=== PATIENT | female | born 1945 | race Caucasian/White ===

== ENCOUNTER → 2017-04-30 18:03 | Outpatient (CLI) | payer MEDICARE ==
[2016-05-28 13:53] VITALS: BMI 26.3
[~2017-04-30 18:03] MED LIST: ATIVAN0.5 MG PO; CYMBALTA60 MG PO; EFFEXOR37.5 MG PO; ESTRACE1 MG PO; GABAPENTIN100 MG PO; LEVAQUIN750 MG PO; LISINOPRIL10 MG PO; NEXIUM20 MG PO; PRAVACHOL20 MG PO; SYNTHROID50 MCG PO; TUMS X-STR300 MG PO; ULTRAM50 MG PO; XANAX0.25 MG PO; XANAX0.5 MG PO; ZESTRIL20 MG PO
== END | disposition home or self-care (01) ==
LOC: D.LABREF 18:03
PROVIDERS: Internal Medicine Pulmonary Disease
DX: J84.10 Pulmonary fibrosis, unspecified (principal)

== ENCOUNTER → 2017-05-08 09:39 | Outpatient (CLI) | payer MEDICARE ==
[2016-05-28 13:53] VITALS: BMI 26.3
[~2017-05-08 09:39] MED LIST changes: +ATIVAN1 MG PO
== END | disposition home or self-care (01) ==
LOC: D.RT 09:39
DX: J84.10 Pulmonary fibrosis, unspecified (principal)

== ENCOUNTER → 2017-05-13 10:08 | Outpatient (CLI) | payer MEDICARE ==
[2016-05-28 13:53] VITALS: BMI 26.3
== END | disposition home or self-care (01) ==
LOC: D.RAD 10:08
DX: K21.9 Gastro-esophageal reflux disease without esophagitis (principal)

== ENCOUNTER 2017-05-21 08:21 | Day surgery (SDC) | payer MEDICARE ==
[~2017-05-21 08:21] MED LIST changes: -ATIVAN1 MG PO
[2017-05-21] MEDS ORDERED: ATIVAN1 MG PO (08:57)
[2017-05-21 09:03] VITALS: BP 112/54; BMI 28.8
[2017-05-21 10:12] LABS: BASOPHILS 0.2 % (0-2); EOSINOPHILS 1.7 % (0-7); HEMATOCRIT 33.1 % (36.0-48.0); HEMOGLOBIN 10.4 g/dL (12-16); IMMATURE GRANULOCYTES 0.4 % (0-5); LYMPHOCYTES 15.1 % (15-50); MCH 26.6 pg (26.0-34.0); MCHC 31.4 g/dL (31.0-37.0); MCV 84.7 fL (80.0-100.0); MEAN PLATELET VOLUME 10.1 fL (7.4-10.4); MONOCYTES 6.9 % (2-11); NEUTROPHILS 75.7 % (40-80); RBC 3.91 10x6/uL (4.00-5.40); RDW 14.6 % (11.5-14.5)
[2017-05-21 10:26] LABS: CALC OSMOLALITY 285 mosm/kg (275-300); CALCIUM 8.8 mg/dL (8.5-10.1); CARBON DIOXIDE 30.9 mmol/L (21.0-32.0); CHLORIDE - SERUM 107 mmol/L (98-107); CREATININE - SERUM 0.7 mg/dL (0.6-1.3); GLUCOSE 87 mg/dL (74-106); POTASSIUM - SERUM 4.5 mmol/L (3.5-5.1); SODIUM 144 mmol/L (136-145); UREA NITROGEN 13 mg/dL (7-18); eGFR NON AFRICAN AMERICAN 87 mL/min (90-120)
[2017-05-21 11:37] LABS: PLATELET COUNT 336 10x3/uL (130-400)
--- NOTE | 2017-05-21 16:24 | NUR ---
1540 DISCHARGE INSTRUCTIONS COMPLETE. PT HAS NO QUESTIONS OR CONCERNS AT THIS TIME. PT ESCORTED OUT BY VOLUNTEER.
--- NOTE | 2017-05-22 13:11 | OP ---
PATIENT NAME: ROBINSON POMPA MEDICAL RECORD: [id number] :45 LOCATION:D.OPS ADMISSION DATE: SURGEON: MARVIN COTE MD DATE OF OPERATION: 05/21/2017 PREOPERATIVE DIAGNOSES: 1. Gastroesophageal reflux disease. 2. Hiatal hernia. 3. Hypertension. 4. Hyperlipidemia. 5. Hypercholesterolemia. 6. Anxiety disorder. POSTOPERATIVE DIAGNOSES: 1. Gastroesophageal reflux disease. 2. Hiatal hernia. 3. Hypertension. 4. Hyperlipidemia. 5. Hypercholesterolemia. 6. Anxiety disorder. PROCEDURE: EGD with biopsy. SURGEON: Marvin Cote MD REPORT OF PROCEDURE: An Olympus endoscope was advanced through the mouth and esophagus, the GE junction was noted to be about 30 cm. A biopsy was taken at the GE junction. There was noted to be some inflammatory changes of the GE junction along with some ulcerations. The patient also had some mild dilation of the distal esophagus. It appeared the patient did have a hiatal hernia. As we progressed down into the stomach, the initial aspect of the stomach was a tight little column of tissue, which emptied into an opening. This opening was angulated and initially quite tight. We were eventually able to pass through this opening into the remainder of the stomach. As we did a retroflex view, we could see the remaining fundus of the stomach projecting upwards and we could see the antrum of the stomach leading up to the pylorus. This was all consistent with a vertical banding gastroplasty. The patient had some inflammatory gastritis in the distal stomach. A biopsy was taken of this tissue. We were able to pass through the pylorus and into the duodenum. There are no signs of any inflammatory changes, masses, or ulcerations to the duodenum. Another view of the stomach showed no sign of any masses, lesions or ulcerations. I was not able to get up to the most proximal aspect of the fundus of the stomach secondary to the fact the scope would not turn that direction. We had the scope maxed out in position and could just see into this opening. As we pulled back, we could see that the GE junction was resting at about 30 cm at the teeth and the distal opening of the vertical banding gastroplasty was at about 50 cm. At this point, the scope was pulled back and we inspected the patient's esophagus. Besides the dilatation and distal ulcerations, there was no sign of any masses or lesions. At this point, the scope was completely removed. COMPLICATIONS: None. CONDITION: Stable. OPERATIVE REPORT [id number] ROBINSON POMPA ANESTHESIA: TIVA. BLOOD LOSS: Minimal. TRANSINT:[id number] Voice Confirmation ID: [id number] DOCUMENT ID: [id number] MARVIN COTE MD at 1311 CC: JAYASHREE OSORIO MD [id number] DICTATION DATE: 05/21/17 1426 L[employer]OGRAPH PR[employer] OPERATOR: 05/21/17 1557 [facility] 05/21/17 [id number] [place] [address]
== END 2017-05-21 15:40 | disposition home or self-care (01) ==
LOC: D.OPS 08:21
PROVIDERS: Surgery
DX: K21.9 Gastro-esophageal reflux disease without esophagitis (principal); K44.9 Diaphragmatic hernia without obstruction or gangrene; I10 Essential (primary) hypertension; E78.00 Pure hypercholesterolemia, unspecified; F03.90 Unspecified dementia, unspecified severity, without behavioral disturbance, psychotic disturbance, mood disturbance, and anxiety; F41.9 Anxiety disorder, unspecified; Z01.812 Encounter for preprocedural laboratory examination

== ENCOUNTER → 2017-09-22 09:43 | Outpatient (CLI) | payer MEDICARE ==
[~2017-09-22 09:43] MED LIST changes: +ATIVAN1 MG PO
== END | disposition home or self-care (01) ==
LOC: D.CT 09-17 10:30
DX: J84.10 Pulmonary fibrosis, unspecified (principal)

== ENCOUNTER 2017-10-06 05:25 | Day surgery (SDC) | payer MEDICARE ==
[2017-10-05 10:18] LABS: BASOPHILS 0.3 % (0-2); EOSINOPHILS 1.8 % (0-7); HEMATOCRIT 32.7 % (36.0-48.0); HEMOGLOBIN 10.1 g/dL (12-16); IMMATURE GRANULOCYTES 0.1 % (0-5); LYMPHOCYTES 23.8 % (15-50); MCH 23.6 pg (26.0-34.0); MCHC 30.9 g/dL (31.0-37.0); MCV 76.4 fL (80.0-100.0); MEAN PLATELET VOLUME 9.5 fL (7.4-10.4); MONOCYTES 9.1 % (2-11); NEUTROPHILS 64.9 % (40-80); PLATELET COUNT 395 10x3/uL (130-400); RBC 4.28 10x6/uL (4.00-5.40); RDW 17.6 % (11.5-14.5); WBC 8.9 10x3/uL (4.8-10.8)
[2017-10-05 10:33] LABS: ANION GAP 9.4 mmol/L (8-16); CALCIUM 8.8 mg/dL (8.5-10.1); CREATININE - SERUM 0.8 mg/dL (0.6-1.3); POTASSIUM - SERUM 4.4 mmol/L (3.5-5.1)
[2017-10-06] VITALS (7 sets, daily range): BP systolic 99–127; BP diastolic 49–79; BMI 28.9
--- NOTE | ~2017-10-06 | OP ---
PATIENT NAME: ROBINSON POMPA MEDICAL RECORD: [id number] :45 LOCATION:D.OPS ADMISSION DATE: SURGEON: HUMBERTO COTE MD DATE OF OPERATION: 10/06/2017 PREOPERATIVE DIAGNOSES: 1. Gastroesophageal reflux disease. 2. Hiatal hernia. 3. Fibrosis of the lungs. 4. Hypertension. 5. Hyperlipidemia. POSTOPERATIVE DIAGNOSES: 1. Gastroesophageal reflux disease. 2. Hiatal hernia. 3. Fibrosis of the lungs. 4. Hypertension. 5. Hyperlipidemia. PROCEDURES: 1. Laparoscopic lysis of adhesions. 2. Laparoscopic hiatal hernia repair with Eunice fundoplication. SURGEON: Humberto Cote MD REPORT OF PROCEDURE: The patient's abdomen was prepped and draped in sterile fashion. A Veress needle was inserted in the left upper quadrant and the abdomen was insufflated. A 5-mm Visiport trocar was inserted in the left lateral abdomen. I could see the Veress needle at this point and saw there was no sign of any injury to bowel or surrounding structures. We then placed an 11-mm trocar in the left subcostal region. Using this, I was able to take down a large amount of adhesions remaining in the midline from the previous midline laparotomy. These were fatty omental adhesions to the anterior abdominal wall and included some of the adhesions to the patient's liver. We took down all the adhesions and still had the abdomen from the umbilicus up, cleared of any adhesions. This took approximately 30 minutes time. Once we had the adhesions freed up, then we were able to place a 5-mm trocar in the epigastrium, a 5-mm trocar in the left lateral abdomen, and an 11-mm trocar in the midline just above the umbilicus. There were still some adhesions of the stomach to the lateral aspect of the left lobe of the liver and these were taken down using electrocautery and Harmonic scalpel. We eventually were able to penetrate through the lesser omentum and followed this dissection up to the right side of the right manuel. We dissected off the hernia sac and was able to free up this hernia sac, so they extended up into the patient's chest. The patient was noted to have about a third of the stomach up in the thoracic cavity through a very large esophageal hiatus. We then came to the greater curvature of the stomach and took down the short gastric using Harmonic scalpel. We ran into some adhesions and old scarring from previous surgery, which by its appearance looked to be a vertical banding gastroplasty, the dissection was continued up to the left side of the right manuel. We were able to follow up just underneath the patient's hernia sac into the thoracic cavity and at this point, we were able to completely free up any adhesions that were present. We were eventually able to get over the stomach, was placed back into the abdominal cavity with about a cm of esophagus extending down into the abdomen. The esophageal hiatus was reapproximated with interrupted 0 Polydek times 4. We then performed a OPERATIVE REPORT [id number] ROBINSON POMPA 360-degree posterior wrap at the fundus of the stomach around the distal esophagus, 0 Polydeks times 3 were used to perform the wrap and the top and the bottom sutures incorporated a bite of the esophagus. The wrap appeared to be in good position. The patient had an indwelling OG tube and this was easily removed at this time. At this point, we irrigated out the abdomen and any injury to the liver was treated with electrocautery. I did not see any evidence of any active bleeding at the conclusion of the case. At this point, the 11-mm trocar site fascias were closed with 0 Vicryls using a Austin-Rufus suture passer device. The ports and insufflation were then removed. The wounds were infused with a total of 10 mL of 0.25% Marcaine with epinephrine and then closed with subcutaneous 5-0 Monocryl. COMPLICATIONS: None. CONDITION: Stable. ANESTHESIA: General endotracheal and local. BLOOD LOSS: Minimal. TRANSINT:[id number] Voice Confirmation ID: [id number] DOCUMENT ID: [id number] HUMBERTO COTE MD at 1319 CC: JAIME WISDOM MD and JAYASHREE OSORIO [id number] DICTATION DATE: 10/06/17 1045 [employer] SUPERVISOR: 10/06/17 1206 [facility] 10/07/17 [id number] [place] [address]
[~2017-10-06 05:25] MED LIST changes: +ARICEPT5 MG PO; +EFFEXOR XR150 MG PO; +NORVASC5 MG PO; +TRAZODONE HCL50 MG PO
[2017-10-07] VITALS: BP 114/46
[2017-10-07 04:00] VITALS: BP 117/48
[2017-10-07 04:29] LABS: BASOPHILS 0.1 % (0-2); EOSINOPHILS 0 % (0-7); HEMATOCRIT 28.7 % (36.0-48.0); HEMOGLOBIN 8.6 g/dL (12-16); IMMATURE GRANULOCYTES 0.2 % (0-5); LYMPHOCYTES 11.4 % (15-50); MCH 23.4 pg (26.0-34.0); MEAN PLATELET VOLUME 9.8 fL (7.4-10.4); MONOCYTES 10.3 % (2-11); PLATELET COUNT 320 10x3/uL (130-400); RBC 3.68 10x6/uL (4.00-5.40); RDW 17.9 % (11.5-14.5); WBC 10.4 10x3/uL (4.8-10.8)
[2017-10-07 04:52] LABS: CALC OSMOLALITY 281 mosm/kg (275-300); CALCIUM 8.2 mg/dL (8.5-10.1); CARBON DIOXIDE 26.2 mmol/L (21.0-32.0); CHLORIDE - SERUM 108 mmol/L (98-107); CREATININE - SERUM 0.7 mg/dL (0.6-1.3); GLUCOSE 105 mg/dL (74-106); SODIUM 142 mmol/L (136-145); UREA NITROGEN 11 mg/dL (7-18); eGFR NON AFRICAN AMERICAN 87 mL/min (90-120)
[2017-10-07 08:45] VITALS: BP 110/47
[2017-10-07 12:45] VITALS: BP 140/50
[2017-10-07 16:43] VITALS: BP 107/50
[2017-10-07] MEDS ORDERED: REGLAN10 MG PO (17:06)
[2017-10-07] MEDS ORDERED: Demerol PO (17:06)
[2017-11-02] MEDS ORDERED: ULTRAM50 MG PO (23:43)
[2017-11-02] MEDS ORDERED: DILAUDID2 MG PO (23:46)
[2017-11-03] MEDS ORDERED: ULTRAM50 MG PO (13:17)
[2017-11-03] MEDS ORDERED: REGLAN10 MG PO (13:18)
== END 2017-10-07 18:36 | disposition home or self-care (01) ==
LOC: D.MS 05:25 → D.OPS 05:25 → D.MS 15:11 → D.OPS 10-07 18:36
PROVIDERS: Surgery
DX: K21.9 Gastro-esophageal reflux disease without esophagitis (principal); K44.9 Diaphragmatic hernia without obstruction or gangrene; J84.10 Pulmonary fibrosis, unspecified; I10 Essential (primary) hypertension; E78.5 Hyperlipidemia, unspecified; K66.0 Peritoneal adhesions (postprocedural) (postinfection); Z01.812 Encounter for preprocedural laboratory examination

== ENCOUNTER 2017-12-20 09:14 | Inpatient (IN) | payer MEDICARE ==
[~2017-12-20] VITALS: Ht 157.5 cm; Wt 72.6 kg
[~2017-12-20 09:14] MED LIST changes: +DILAUDID2 MG PO; +Demerol PO; +REGLAN10 MG PO
[2017-12-20 09:54] LABS: BASOPHILS 0.2 % (0-2); EOSINOPHILS 0.6 % (0-7); IMMATURE GRANULOCYTES 1.6 % (0-5); LYMPHOCYTES 8.7 % (15-50); MCH 28.9 pg (26.0-34.0); MCHC 32.8 g/dL (31.0-37.0); MEAN PLATELET VOLUME 10.3 fL (7.4-10.4); MONOCYTES 6.9 % (2-11); RDW 25.4 % (11.5-14.5); WBC 13.8 10x3/uL (4.8-10.8)
[2017-12-20 10:07] LABS: HEMATOCRIT 12.5 % (36.0-48.0); HEMOGLOBIN 4.1 g/dL (12-16); PLATELET COUNT 184 10x3/uL (130-400); RBC 1.42 10x6/uL (4.00-5.40)
[2017-12-20 10:12] LABS: ALBUMIN 1.9 g/dL (3.4-5.0); ALKALINE PHOSPHATASE 67 U/L (46-116); ALT (SGPT) 11 U/L (10-68); BILIRUBIN - TOTAL 0.07 mg/dL (0.2-1.3); CALC OSMOLALITY 294 mosm/kg (275-300); CARBON DIOXIDE 22.8 mmol/L (21.0-32.0); CKMB 0.9 U/L (0.0-3.6); CREATINE KINASE 36 UL (21-215); CREATININE - SERUM 0.6 mg/dL (0.6-1.3); GLUCOSE 133 mg/dL (74-106); POTASSIUM - SERUM 3.5 mmol/L (3.5-5.1); PRO BNP 676 pg/mL (0-125); PROTEIN - SERUM 4.1 g/dL (6.4-8.2); SODIUM 147 mmol/L (136-145); TROPONIN-I < 0.017 ng/mL (0.000-0.060); UREA NITROGEN 16 mg/dL (7-18); eGFR NON AFRICAN AMERICAN > 90 mL/min (90-120)
[2017-12-20 10:13] LABS: CALCIUM 6.9 mg/dL (8.5-10.1); CHLORIDE - SERUM 117 mmol/L (98-107)
[2017-12-20 11:27] LABS: APPEARANCE CLEAR (CLEAR); BILIRUBIN NEGATIVE (NEGATIVE); COLOR YELLOW (YELLOW); GLUCOSE NEGATIVE (NEGATIVE); KETONE NEGATIVE (NEGATIVE); NITRITE NEGATIVE (NEGATIVE); PROTEIN TRACE mg/dL (NEGATIVE); SPECIFIC GRAVITY 1.015 (1.005-1.020); UROBILINOGEN NORMAL (NORMAL)
[2017-12-20 11:33] LABS: BACTERIA FEW /hpf (NONE SEEN); EPITHELIAL CELLS 0-5 /hpf (0-5); RED CELLS - URINE 0-5 /hpf (0-5); WHITE CELLS - URINE 0-5 /hpf (0-5)
[2017-12-20 12:43] VITALS: BP 114/37; BMI 29.3
[2017-12-20 15:11] LABS: APTT 27.3 SECONDS (22.8-39.4); INR 1.14 (0.85-1.17); PROTIME 14.2 SECONDS (11.6-15.0)
[2017-12-20 22:40] VITALS: BP 127/44
[2017-12-21 04:26] VITALS: BP 128/57
[2017-12-21 05:54] LABS: BASOPHILS 0.3 % (0-2); EOSINOPHILS 2.4 % (0-7); LYMPHOCYTES 15.5 % (15-50); MCH 28.7 pg (26.0-34.0); MCHC 33.8 g/dL (31.0-37.0); MEAN PLATELET VOLUME 10.4 fL (7.4-10.4); NEUTROPHILS 70.8 % (40-80); PLATELET COUNT 155 10x3/uL (130-400); RDW 19.5 % (11.5-14.5); WBC 11.5 10x3/uL (4.8-10.8)
[2017-12-21 05:56] LABS: HEMATOCRIT 22.5 % (36.0-48.0); HEMOGLOBIN 7.6 g/dL (12-16); MCV 84.9 fL (80.0-100.0); RBC 2.65 10x6/uL (4.00-5.40)
[2017-12-21 06:06] LABS: CALCIUM 7.5 mg/dL (8.5-10.1); CARBON DIOXIDE 25.3 mmol/L (21.0-32.0); CREATININE - SERUM 0.5 mg/dL (0.6-1.3); GLUCOSE 108 mg/dL (74-106); POTASSIUM - SERUM 3.3 mmol/L (3.5-5.1); PRE-ALBUMIN 14.9 mg/dL (18.0-35.7); SODIUM 149 mmol/L (136-145); eGFR NON AFRICAN AMERICAN > 90 mL/min (90-120)
[2017-12-21 06:08] LABS: CALC OSMOLALITY 295 mosm/kg (275-300); CHLORIDE - SERUM 116 mmol/L (98-107); UREA NITROGEN 9 mg/dL (7-18)
[2017-12-21 08:23] VITALS: BP 116/53
[2017-12-21 10:23] VITALS: Ht 157.5 cm; Wt 72.6 kg
[2017-12-21 13:53] VITALS: BP 127/58
[2017-12-21 21:26] VITALS: BP 191/60
[2017-12-22 02:09] VITALS: BP 164/58
[2017-12-22 05:24] VITALS: BP 130/62
[2017-12-22 07:09] LABS: BASOPHILS 0.3 % (0-2); EOSINOPHILS 2.6 % (0-7); IMMATURE GRANULOCYTES 1.4 % (0-5); LYMPHOCYTES 13.1 % (15-50); MCH 29.3 pg (26.0-34.0); MCHC 33.9 g/dL (31.0-37.0); MCV 86.6 fL (80.0-100.0); MEAN PLATELET VOLUME 10.4 fL (7.4-10.4); MONOCYTES 10.2 % (2-11); NEUTROPHILS 72.4 % (40-80); PLATELET COUNT 144 10x3/uL (130-400); RDW 19.2 % (11.5-14.5); WBC 10.9 10x3/uL (4.8-10.8)
[2017-12-22 07:15] LABS: HEMATOCRIT 30.4 % (36.0-48.0); HEMOGLOBIN 10.3 g/dL (12-16); RBC 3.51 10x6/uL (4.00-5.40)
[2017-12-22 07:34] LABS: ALKALINE PHOSPHATASE 85 U/L (46-116); BILIRUBIN - TOTAL 0.43 mg/dL (0.2-1.3); CALCIUM 7.3 mg/dL (8.5-10.1); CARBON DIOXIDE 25.8 mmol/L (21.0-32.0); CHLORIDE - SERUM 115 mmol/L (98-107); CREATININE - SERUM 0.6 mg/dL (0.6-1.3); GLUCOSE 95 mg/dL (74-106); POTASSIUM - SERUM 3.6 mmol/L (3.5-5.1); SODIUM 147 mmol/L (136-145); eGFR NON AFRICAN AMERICAN > 90 mL/min (90-120)
[2017-12-22 07:37] LABS: ALBUMIN 2.4 g/dL (3.4-5.0); ALT (SGPT) 14 U/L (10-68); CALC OSMOLALITY 288 mosm/kg (275-300); PROTEIN - SERUM 5.2 g/dL (6.4-8.2); UREA NITROGEN 5 mg/dL (7-18)
[2017-12-22 08:48] VITALS: BP 134/62
[2017-12-22 13:12] VITALS: BP 167/65
[2017-12-22 16:45] VITALS: BP 126/66
[2017-12-22 18:49] LABS: HEMATOCRIT 32.9 % (36.0-48.0); HEMOGLOBIN 10.9 g/dL (12-16)
[2017-12-22 20:39] VITALS: BP 176/71
[2017-12-23 04:57] VITALS: BP 138/62
[2017-12-23 05:51] LABS: ALBUMIN 2.5 g/dL (3.4-5.0); ALKALINE PHOSPHATASE 98 U/L (46-116); BILIRUBIN - TOTAL 0.46 mg/dL (0.2-1.3); CALCIUM 7.9 mg/dL (8.5-10.1); CARBON DIOXIDE 29.2 mmol/L (21.0-32.0); CHLORIDE - SERUM 112 mmol/L (98-107); CREATININE - SERUM 0.5 mg/dL (0.6-1.3); GLUCOSE 109 mg/dL (74-106); POTASSIUM - SERUM 3.1 mmol/L (3.5-5.1); PROTEIN - SERUM 5.4 g/dL (6.4-8.2); SODIUM 147 mmol/L (136-145); eGFR NON AFRICAN AMERICAN > 90 mL/min (90-120)
[2017-12-23 05:54] LABS: ALT (SGPT) 18 U/L (10-68); CALC OSMOLALITY 289 mosm/kg (275-300); UREA NITROGEN 3 mg/dL (7-18)
[2017-12-23 05:58] LABS: BASOPHILS 0.4 % (0-2); EOSINOPHILS 3.3 % (0-7); HEMATOCRIT 32.9 % (36.0-48.0); IMMATURE GRANULOCYTES 0.5 % (0-5); LYMPHOCYTES 11.2 % (15-50); MCH 29.3 pg (26.0-34.0); MCHC 33.4 g/dL (31.0-37.0); MCV 87.5 fL (80.0-100.0); MEAN PLATELET VOLUME 10.8 fL (7.4-10.4); MONOCYTES 10.2 % (2-11); NEUTROPHILS 74.4 % (40-80); RBC 3.76 10x6/uL (4.00-5.40); RDW 20.3 % (11.5-14.5); WBC 10.4 10x3/uL (4.8-10.8)
[2017-12-23 05:59] LABS: PLATELET COUNT 173 10x3/uL (130-400)
[2017-12-23 09:57] VITALS: BP 143/75
[2017-12-23 13:39] VITALS: BP 139/66
[2017-12-23 16:25] VITALS: BP 174/80
[2017-12-23 20:48] VITALS: BP 107/51
[2017-12-24] VITALS (7 sets, daily range): BP systolic 129–215; BP diastolic 63–75
[2017-12-24 06:17] LABS: BASOPHILS 0.2 % (0-2); EOSINOPHILS 3.3 % (0-7); HEMATOCRIT 33.8 % (36.0-48.0); HEMOGLOBIN 11.1 g/dL (12-16); IMMATURE GRANULOCYTES 0.3 % (0-5); MCHC 32.8 g/dL (31.0-37.0); MCV 88.3 fL (80.0-100.0); MEAN PLATELET VOLUME 10.2 fL (7.4-10.4); MONOCYTES 11.1 % (2-11); NEUTROPHILS 74.1 % (40-80); PLATELET COUNT 178 10x3/uL (130-400); RBC 3.83 10x6/uL (4.00-5.40); RDW 19.9 % (11.5-14.5); WBC 9.5 10x3/uL (4.8-10.8)
[2017-12-24 06:47] LABS: ALBUMIN 2.6 g/dL (3.4-5.0); ALKALINE PHOSPHATASE 112 U/L (46-116); ALT (SGPT) 17 U/L (10-68); BILIRUBIN - TOTAL 0.33 mg/dL (0.2-1.3); CALC OSMOLALITY 285 mosm/kg (275-300); CALCIUM 7.8 mg/dL (8.5-10.1); CARBON DIOXIDE 29.4 mmol/L (21.0-32.0); CHLORIDE - SERUM 111 mmol/L (98-107); CREATININE - SERUM 0.5 mg/dL (0.6-1.3); GLUCOSE 112 mg/dL (74-106); POTASSIUM - SERUM 3.6 mmol/L (3.5-5.1); PROTEIN - SERUM 5.5 g/dL (6.4-8.2); SODIUM 145 mmol/L (136-145); UREA NITROGEN 2 mg/dL (7-18); eGFR NON AFRICAN AMERICAN > 90 mL/min (90-120)
[2017-12-24 16:08] LABS: BASOPHILS 0.2 % (0-2); EOSINOPHILS 4.4 % (0-7); HEMATOCRIT 33.6 % (36.0-48.0); IMMATURE GRANULOCYTES 0.2 % (0-5); LYMPHOCYTES 12.4 % (15-50); MCH 29.1 pg (26.0-34.0); MCHC 32.7 g/dL (31.0-37.0); MCV 88.9 fL (80.0-100.0); MEAN PLATELET VOLUME 9.8 fL (7.4-10.4); MONOCYTES 10.1 % (2-11); NEUTROPHILS 72.7 % (40-80); PLATELET COUNT 187 10x3/uL (130-400); RBC 3.78 10x6/uL (4.00-5.40); RDW 19.5 % (11.5-14.5); WBC 9.6 10x3/uL (4.8-10.8)
[2017-12-25 04:27] VITALS: BP 164/63
[2017-12-25 05:08] LABS: BASOPHILS 0.2 % (0-2); EOSINOPHILS 5.1 % (0-7); HEMATOCRIT 33.1 % (36.0-48.0); HEMOGLOBIN 10.7 g/dL (12-16); IMMATURE GRANULOCYTES 0.2 % (0-5); LYMPHOCYTES 11.7 % (15-50); MCH 28.8 pg (26.0-34.0); MCHC 32.3 g/dL (31.0-37.0); MONOCYTES 8.5 % (2-11); NEUTROPHILS 74.3 % (40-80); PLATELET COUNT 189 10x3/uL (130-400); RBC 3.72 10x6/uL (4.00-5.40); RDW 18.9 % (11.5-14.5); WBC 8.8 10x3/uL (4.8-10.8)
[2017-12-25 05:22] LABS: ALBUMIN 2.5 g/dL (3.4-5.0); ALKALINE PHOSPHATASE 115 U/L (46-116); ALT (SGPT) 17 U/L (10-68); BILIRUBIN - TOTAL 0.32 mg/dL (0.2-1.3); CALC OSMOLALITY 288 mosm/kg (275-300); CALCIUM 7.9 mg/dL (8.5-10.1); CARBON DIOXIDE 30.2 mmol/L (21.0-32.0); CHLORIDE - SERUM 112 mmol/L (98-107); CREATININE - SERUM 0.6 mg/dL (0.6-1.3); GLUCOSE 116 mg/dL (74-106); POTASSIUM - SERUM 3.5 mmol/L (3.5-5.1); PROTEIN - SERUM 5.2 g/dL (6.4-8.2); SODIUM 147 mmol/L (136-145); UREA NITROGEN 2 mg/dL (7-18); eGFR NON AFRICAN AMERICAN > 90 mL/min (90-120)
[2017-12-25 09:26] VITALS: BP 147/76
[2017-12-25] MEDS ORDERED: PROTONIX40 MG PO (12:08)
[2017-12-25] MEDS ORDERED: PEPCID40 MG PO (12:08)
== END 2017-12-25 16:29 | disposition home or self-care (01) | DRG 919 ==
LOC: D.ER 09:14 → D.MS 11:12 → OBSVTIME 11:12 → D.EDHOLD 11:12 → D.MS 11:12
PROVIDERS: Anesthesiology; Emergency Medicine; Family Medicine; Internal Medicine Gastroenterology; Surgery
PROC: 0DB78ZX Excision of Stomach, Pylorus, Via Natural or Artificial Opening Endoscopic, Diagnostic (ICD-10-PCS; 2017-12-22)
PROC: 0DB58ZX Excision of Esophagus, Via Natural or Artificial Opening Endoscopic, Diagnostic (ICD-10-PCS; 2017-12-22)
PROC: 0DB98ZX Excision of Duodenum, Via Natural or Artificial Opening Endoscopic, Diagnostic (ICD-10-PCS; principal; 2017-12-22 07:00)
PROC: 0DC68ZZ Extirpation of Matter from Stomach, Via Natural or Artificial Opening Endoscopic (ICD-10-PCS; 2017-12-25)
PROC: 0DB78ZX Excision of Stomach, Pylorus, Via Natural or Artificial Opening Endoscopic, Diagnostic (ICD-10-PCS; 2017-12-25)
PROC: 0DBP8ZZ Excision of Rectum, Via Natural or Artificial Opening Endoscopic (ICD-10-PCS; 2017-12-25)
PROC: 0DBP8ZX Excision of Rectum, Via Natural or Artificial Opening Endoscopic, Diagnostic (ICD-10-PCS; 2017-12-25)
DX: K91.840 Postprocedural hemorrhage of a digestive system organ or structure following a digestive system procedure (principal); E43 Unspecified severe protein-calorie malnutrition; K29.61 Other gastritis with bleeding; D62 Acute posthemorrhagic anemia; E87.0 Hyperosmolality and hypernatremia; Z68.1 Body mass index [BMI] 19.9 or less, adult; K22.10 Ulcer of esophagus without bleeding; K21.0 Gastro-esophageal reflux disease with esophagitis; T18.2XXA Foreign body in stomach, initial encounter; K62.1 Rectal polyp; K64.8 Other hemorrhoids; K57.30 Diverticulosis of large intestine without perforation or abscess without bleeding; Y83.8 Other surgical procedures as the cause of abnormal reaction of the patient, or of later complication, without mention of misadventure at the time of the procedure; E78.5 Hyperlipidemia, unspecified; I10 Essential (primary) hypertension; F41.8 Other specified anxiety disorders; E03.9 Hypothyroidism, unspecified; G89.29 Other chronic pain; D72.829 Elevated white blood cell count, unspecified; M54.5 Low back pain; E87.6 Hypokalemia; K29.80 Duodenitis without bleeding

== ENCOUNTER 2018-12-10 09:00 | Outpatient (CLI) | payer OTHER ==
[2017-12-21 10:23] VITALS: BMI 29.2
[~2018-12-10 09:00] MED LIST changes: +PEPCID40 MG PO; +PROTONIX40 MG PO
== END 2018-12-10 10:00 | disposition home or self-care (01) ==
LOC: D.MAMMO 09:00
PROVIDERS: ATTEND Family Medicine
DX: Z12.31 Encounter for screening mammogram for malignant neoplasm of breast (principal)

== ENCOUNTER → 2020-05-08 12:29 | Outpatient (CLI) | payer OTHER ==
[2017-12-21 10:23] VITALS: BMI 29.2
== END | disposition home or self-care (01) ==
LOC: D.MRI 04-24 10:00
PROVIDERS: ATTEND Orthopaedic Surgery
DX: M48.56XA Collapsed vertebra, not elsewhere classified, lumbar region, initial encounter for fracture (principal)